=== PATIENT | male | born 1960 | race Caucasian/White ===

== ENCOUNTER 2017-01-13 06:31 | Inpatient (IN) | payer OTHER ==
--- NOTE | 2016-12-26 12:31 | PAT Medication Instructions ---
Service Date Dec 26, 2016. Current Home Medication List Ascorbic Acid (Vitamin C), 500 MG PO NOON Cinnamon (Cinnamon), 1,000 MG PO NOON Coenzyme Q10 (Ubidecarenone) (Coq10), 100 MG PO NOON Ibuprofen Tab (Advil), 400 MG PO QID PRN for RN Meloxicam (Mobic), 15 MG PO NOON Multivitamin (Multivitamin), 1 TAB PO NOON Omeprazole (Prilosec), 20 MG PO Q2D Pravastatin (Pravachol ), 80 MG PO NOON Ropinirole (Requip), 0.25 MG PO HS PRN for RESTLESS LEG Vitamin E (Vitamin E), 400 UNITS PO NOON [Calcium Zinc Mag], 1 TAB PO NOON [L Lysine], 1,000 MG PO NOON Medication Instructions For Your Scheduled Surgery - Hold the following medications 10 days prior to surgery: Ibuprofen Tab (Advil), 400 MG PO QID PRN for RN Meloxicam (Mobic), 15 MG PO NOON Calcium Zinc Mag 1 TAB PO NOON Vitamin E (Vitamin E), 400 UNITS PO NOON Coenzyme Q10 (Ubidecarenone) (Coq10), 100 MG PO NOON Cinnamon (Cinnamon), 1,000 MG PO NOON - Hold the following medications evening prior to surgery: Ropinirole (Requip), 0.25 MG PO HS PRN for RESTLESS LEG - Hold the following medications the morning of surgery: L Lysine 1,000 MG PO NOON Multivitamin (Multivitamin), 1 TAB PO NOON Ascorbic Acid (Vitamin C), 500 MG PO NOON - Take the following medications the morning of surgery with a sip of water: Omeprazole (Prilosec), 20 MG PO Q2D - Take the following medications as scheduled the afternoon/night before surgery : Pravastatin (Pravachol ), 80 MG PO NOON If you have any questions please call us at [phone] or [phone] ( Brenna) or [phone]
[2016-12-26 13:20] LABS: BASO % 0.5 %; BASO ABS # 0.03 K/uL (0-0.2); COMPLETE YES; EOS % 1.9 %; HEMATOCRIT 44.1 % (42-52); IG% 0.2 %; LYMPH % 34.3 %; LYMPH ABS # 2.02 K/uL (1.2-3.4); MEAN CELL VOLUME 91.1 fL (80-100); MEAN CORPUSCULAR HEMOGLOBIN 31.4 pg (25-34); MEAN CORPUSCULAR HGB CONC 34.5 g/dl (32-36); MEAN PLATELET VOLUME 8.9 fL (7.4-10.4); MONO % 12.1 %; PLATELET COUNT 369 K/uL (130-400); RED BLOOD COUNT 4.84 M/uL (4.7-6.1); WHITE BLOOD COUNT 5.89 K/uL (4.8-10.8)
[2016-12-26 13:22] LABS: URINE APPEARANCE CLEAR (CLEAR); URINE BILIRUBIN NEG (NEG); URINE COLOR YELLOW; URINE NITRITE NEG (NEG); URINE SPECIFIC GRAVITY 1.023 (1.000-1.030); UROBILINOGEN NEG (NEG); ZZUR CULT IF INDIC CLEAN CATCH NO
[2016-12-26 13:31] LABS: PARTIAL THROMBOPLASTIN RATIO 1.1; PROTHROMBIN TIME (PATIENT) 10.4 SECONDS (9.0-12.0)
[2016-12-26 13:38] LABS: MANUAL MICROSCOPIC REQUIRED? NO; REVIEW REQ? NO
[2016-12-26 13:40] LABS: BUN/CREATININE RATIO 15.3 (10-20); CALCIUM 9.6 mg/dl (8.5-10.1); CREATININE 0.92 mg/dl (0.60-1.40); POTASSIUM 4.6 mmol/L (3.5-5.1)
--- NOTE | 2017-01-09 08:44 | HISTORY & PHYSICAL EXAMINATION ---
DATE OF ADMISSION: 01/13/2017 CHIEF COMPLAINT: Left knee pain. HISTORY OF PRESENT ILLNESS: Mr. Mcnamara is a 56-year-old male with a 20-year history of pain in his left knee. The patient rates his pain at an 8/10. He has pain with his daily activities. He has limited standing and walking tolerance. Pain is worse with weightbearing. The patient has had knee arthroscopy x2 followed by 6 weeks of physical therapy each time. He takes Mobic since 2010. He has been taking other anti-inflammatories for 20 years. He wears a brace with most of his activities. He does participate in a home exercise program daily for the last 10 years. This is becoming increasingly more difficult. He has also had injections, both Synvisc and corticosteroids without relief. At this time, he has failed conservative treatment and is scheduled for left knee replacement. PAST MEDICAL HISTORY: Hypercholesterolemia, GERD, and Lyme disease. He denies heart disease, diabetes or DVT. PAST SURGICAL HISTORY: Left knee arthroscopy x2, ORIF of left ankle, and hand surgery, right wrist. SOCIAL HISTORY: The patient drinks approximately 13 beers per week. He denies tobacco use. He lives in a 2-zolt[address] house. He currently works for the [employer]. FAMILY HISTORY: Negative for DVT. MEDICATIONS: Pravastatin 80 mg daily, Meloxicam 15 mg twice daily, omeprazole 20 mg daily, ropinirole 0.25 mg at bedtime, Advil 2-4 tablets daily, multivitamin, vitamin E, vitamin C, CoQ10, L-lysine, calcium, magnesium and cinnamon. ALLERGIES: PENICILLIN, UNSURE OF REACTION. THIS HAPPENED A CHILD. REVIEW OF SYSTEMS: See HPI. Ten other systems reviewed, all negative. PHYSICAL EXAMINATION: VITAL SIGNS: Height 6 feet 0 inches. Weight 220 pounds. BMI 30. GENERAL: This is a well-developed and well-nourished male who is alert and oriented x3. Mood and affect are appropriate. HEENT: Normocephalic and atraumatic. Mucous membranes are moist and intact. NECK: Supple without lymphadenopathy. HEART: Regular rate and rhythm without murmurs, rubs or gallops. LUNGS: Clear to auscultation without wheezes or rhonchi. ABDOMEN: Soft and nontender. Bowel sounds are equal and active. EXTREMITIES: No ecchymosis, redness or warmth. He has neutral alignment. Range of motion is from 0-115 degrees with trace medial laxity. He is neurovascularly intact with +5/5 strength. X-RAY EXAMINATION: AP and lateral views show joint space narrowing and osteophyte formation. IMPRESSION: Degenerative joint disease, left knee. PLAN: The patient will be admitted for a left total knee arthroplasty. We will plan on aspirin for DVT prophylaxis. PCP is Dr. Sarah Piedra at [facility]. HENNY
[~2017-01-13] VITALS: Ht 182.9 cm; Wt 100.8 kg
[2017-01-13] VITALS (8 sets, daily range): BP systolic 99–171; BP diastolic 59–103; PULSE 60–80; TEMP 36.5–37; O2SAT 95–98; Ht 182.9 cm; Wt 100.8 kg
[2017-01-13] MEDS: TRANEXAMIC ACID INJ 1,000 MG in SODIUM CHLORIDE 0.9% 100ML 100 ML IV SCH ×2 (06:30→07:41)
[~2017-01-13 06:31] MED LIST: ACETAMINOPHEN 500 MG TAB PO SCH; ASCO1CAP3 PO; BUPIVACAINE 0.25% 30 ML VIAL ONE; BUPIVACAINE 0.5 % 5 MG/1 ML PF 10ML VIAL ONE; CALCIUM ZINC MAG PO; CINN1CAP2 PO; CLINDAMYCIN 600 MG/54 ML D5W 54 ML IV SCH; COEN100C7 PO; CeleBREX 200 MG CAP PO SCH; DEXAMETHASONE 4 MG TAB PO SCH; FAMOTIDINE 20 MG TAB PO SCH; GABAPENTIN 300 MG CAP PO SCH; IBUP-103 PO; L LYSINE PO; LACTATED RINGER'S 1000ML 1,000 ML IV SCH; LACTATED RINGER'S 1000ML 500 ML IV ONE; LACTATED RINGER'S 1000ML IV SCH; MELO7.5T5 PO; METOCLOPRAMIDE HCL 10 MG TAB PO SCH; MULT-506 PO; OXYCODONE HCL 10 MG TABCR (OXYCONTIN) PO SCH; POLYMYXIN B SULFATE 100,000 UNITS in NSS 100ML IR SCH; PRAV20TA PO; PRLSR20 PO; ROPI0.25 PO; ROPIVACAINE 5MG/ML 30 ML 150 MG, BUPIVACAINE/EPINEPHR 0.5% MPF 30 ML, KETOROLAC TROMETH... INFIL SCH; VANCOMYCIN INJ 400 MG in NSS 100ML IR SCH; VITA1TAB4 PO
[2017-01-13] MEDS ORDERED: MIDAZOLAM HCL 1 MG/ML 2ML VIAL ONE ×3 (06:44→08:41)
[2017-01-13] MEDS ORDERED: PROPOFOL IV EMULSION 10 MG/ML 20 ML VIAL IV ONE ×2 (06:44→12:01)
[2017-01-13] MEDS ORDERED: LIDOCAINE HCL 2% 2 ML VIAL (20MG/ML) ONE (06:44)
[2017-01-13] MEDS ORDERED: FENTANYL CITRATE INJ 50 MCG/1 ML 2 ML VIAL ONE (06:45)
--- NOTE | 2017-01-13 06:47 | History & Physical Bridge Note ---
H&P Re-Evaluation Bridge Note: I have examined the patient, reviewed the History & Physical and in the interval since the performance of the History & Physical I have noted the following changes of clinical significance: No changes noted
[2017-01-13] MEDS ORDERED: ORTHO JOINT ANESTHETIC ONE (07:04)
[2017-01-13] MEDS ORDERED: BUPIVACAINE/EPINEPHRINE 0.25% 1:200,000 30 ML VIAL ONE (07:05)
[2017-01-13] MEDS ORDERED: POVIDONE-IODINE OP SOLN 30 ML BTL ONE (07:05)
[2017-01-13] MEDS ORDERED: BACITRACIN 50000 UNIT VIAL ONE (07:05)
[2017-01-13] MEDS ORDERED: METOPROLOL TARTRATE 1 MG/ML VIAL ONE (08:40)
[2017-01-13] MEDS ORDERED: PHENYLEPHRINE 100MCG/ML 5ML SYR IV PRN (08:45)
[2017-01-13] MEDS ORDERED: HYDROmorphone INJ 2 MG/ML SYR/VIAL IV PRN (08:45)
[2017-01-13] MEDS ORDERED: ATROPINE SULFATE 0.1 MG/ML 5ML SYR IV PRN (08:45)
[2017-01-13] MEDS ORDERED: ONDANSETRON INJ 2 MG/ML 2 ML VIAL IV PRN ×2 (08:45→09:45)
[2017-01-13] MEDS ORDERED: EpHEDrine SULFATE INJ 50 MG/ML AMP IV PRN (08:45)
[2017-01-13] MEDS ORDERED: KETOROLAC TROMETHAMINE 30 MG/ML VIAL IV. PRN ×2 (08:45→09:45)
--- NOTE | 2017-01-13 09:43 | [facility] Post Operative Brief Note ---
Immediate Operative Summary Operative Date Jan 13, 2017. Pre-Operative Diagnosis Left knee degenerative joint disease Post-Operative Diagnosis Left knee degenerative joint disease Procedure(s) Performed Left total knee arthroplasty Surgeon Dr. George Pringle Senior Web Engineer Surgeon(s) Angel Rod PA-C Estimated Blood Loss 50CC Findings DJD ACL DEF Specimens A. Left knee bone and tissue Complication(s) None Disposition Recovery Room / PACU
[2017-01-13] MEDS ORDERED: TRAMADOL HCL 50 MG TAB PO PRN (09:45)
[2017-01-13] MEDS ORDERED: DiphenhydrAMINE HCL 50 MG/ML VIAL IV PRN (09:45)
[2017-01-13] MEDS ORDERED: SOD PHOSPHATE/SOD BIPHOSPHATE ENEMA 132 ML BTL PR PRN (09:45)
[2017-01-13] MEDS ORDERED: ROPINIROLE HCL 0.25 MG TAB PO PRN (09:45)
[2017-01-13] MEDS ORDERED: MAGNESIUM HYDROXIDE SUSP 30 ML UDC PO PRN (09:45)
[2017-01-13] MEDS ORDERED: ALUMINUM/MAGNESIUM/SIMETH (MAALOX MAX) 30 ML UDC PO PRN (09:45)
[2017-01-13] MEDS ORDERED: METOCLOPRAMIDE HCL INJ 5 MG/ML 2 ML VIAL IV PRN (09:45)
[2017-01-13] MEDS ORDERED: BISACODYL 10 MG SUPP PR PRN (09:45)
[2017-01-13] MEDS ORDERED: ZOLPIDEM TARTRATE 5 MG TAB PO PRN (09:45)
[2017-01-13] MEDS ORDERED: MoRPHine SULFATE 2 MG/ML CARP IV PRN (09:45)
--- NOTE | 2017-01-13 10:45 | DIAGNOSTIC IMAGING REPORT ---
TWO VIEWS LEFT KNEE CLINICAL HISTORY: Postoperative examination. FINDINGS: AP and crosstable lateral portable views of the left knee are obtained. A left knee arthroplasty is in near anatomic alignment. There has been undersurface remodeling of the patella. No acute fracture is seen. There are expected postoperative changes around the knee including a surgical drain, soft tissue edema, and subcutaneous gas. A benign-appearing sclerotic lesion within the distal femoral diaphysis likely represents an enchondroma. IMPRESSION: 1. Expected postoperative changes status post left knee arthroplasty. No acute fracture is seen. 2. A benign-appearing sclerotic lesion within the distal femoral metaphysis likely represents an enchondroma. Electronically signed by: Vladimir Chin M.D. 01/13/2017 10:44 AM Dictated Date/Time: 01/13/2017 10:43 AM
--- NOTE | 2017-01-13 12:13 | Anesthesiology Progress Note ---
Anesthesia Post Op Note Date & Time Jan 13, 2017 at 12:13 Vital Signs Pain Intensity: 0 Vital Signs Past 12 Hours Date Time Temp Pulse Resp B/P Pulse Ox O2 Delivery O2 Flow Rate FiO2 01/13/17 11:31 37.1 58 16 110/63 93 Nasal Cannula 2 01/13/17 11:26 66 14 97 01/13/17 11:26 65 14 01/13/17 11:25 106/75 01/13/17 11:21 62 25 01/13/17 11:21 62 25 95 01/13/17 11:20 106/63 01/13/17 11:16 57 12 95 01/13/17 11:16 58 12 01/13/17 11:15 92/70 01/13/17 11:11 68 16 94 01/13/17 11:11 68 16 01/13/17 11:10 117/67 01/13/17 11:06 63 20 01/13/17 11:06 64 20 96 01/13/17 11:05 94/65 01/13/17 11:01 71 13 95 01/13/17 11:01 68 13 01/13/17 11:00 98/63 01/13/17 10:56 57 13 95 01/13/17 10:56 58 13 01/13/17 10:55 98/60 01/13/17 10:51 56 11 01/13/17 10:51 55 11 93 01/13/17 10:50 103/61 01/13/17 10:49 61 19 01/13/17 10:49 59 19 94 01/13/17 10:45 105/63 01/13/17 10:44 60 13 01/13/17 10:44 60 13 93 01/13/17 10:40 99/63 01/13/17 10:39 63 21 01/13/17 10:39 64 21 95 01/13/17 10:35 103/61 01/13/17 10:34 61 16 01/13/17 10:34 62 16 95 01/13/17 10:30 105/66 01/13/17 10:29 66 19 97 01/13/17 10:29 66 19 01/13/17 10:25 112/60 01/13/17 10:24 69 19 01/13/17 10:24 69 19 95 01/13/17 10:20 109/60 01/13/17 10:19 68 13 104/59 96 01/13/17 10:19 36.5 68 16 104/59 96 Room Air 01/13/17 10:19 68 13 01/13/17 06:55 36.6 80 20 171/103 98 Room Air Notes Mental Status: alert / awake / arousable, participated in evaluation Pt Amnestic to Procedure: Yes Nausea / Vomiting: adequately controlled Pain: adequately controlled Airway Patency, RR, SpO2: stable & adequate BP & HR: stable & adequate Hydration State: stable & adequate Anesthetic Complications: no major complications apparent
[2017-01-13] MEDS: PRAVASTATIN SOD 40 MG TAB PO SCH (13:35)
[2017-01-13] MEDS: D5W AND 1/2NSS + 20MEQ KCL 1,000 ML IV SCH ×2 (13:35→23:36)
[2017-01-13] MEDS: ACETAMINOPHEN 500 MG TAB PO SCH ×2 (13:36→21:25)
--- NOTE | 2017-01-13 14:54 | OPERATIVE REPORT ---
DATE OF OPERATION: 01/13/2017 PREOPERATIVE DIAGNOSIS: Degenerative arthritis, left knee. POSTOPERATIVE DIAGNOSIS: Same. PROCEDURE: Left total knee with patient matched implant. SURGEON: Dr. George Pringle. BOX WORKER: YANELY Cortez. ANESTHESIA: Spinal. BLOOD LOSS: 50 mL. REPLACEMENT FLUIDS: 1900 mL crystalloid. DRAINS: Hemovac x2. CULTURES: None. COMPLICATIONS: None. COMPONENTS USED: Tomas \T\ Nephew Journey Knee System: Femur size 8, tibia size 7 x 9, and patella size 38. NOTE: YANELY Cortez was present and assisted throughout due to the complicated nature of this case. He helped with preparation and set up, first assisted throughout and personally closed the capsule, subcutaneous and skin layers and applied the postoperative dressing. DESCRIPTION OF PROCEDURE: Following satisfactory spinal, the patient was supine. A tourniquet was placed, but not inflated. The lower extremity was prepared with ChloraPrep and draped sterilely. Following a surgical time-out, a midline incision was made with a trivector approach. The knee showed severe grade 4 changes throughout with absence of the anterior cruciate ligament. The posterior cruciate ligament was excised. The patient matched femoral block was applied. Femoral distal rotation and resection were set and completed. The 4-in-1 block was used to finish preparation of the femur. The patient matched tibial block was applied. Tibial resection was completed. Patella was freehand cut. Soft tissue balancing was completed and a trial reduction showed good tensioning stability on the collateral ligaments, stable range of motion, and the patella tracked well. The trial components were removed. The capsule was prepared with the orthopedic cocktail and after irrigation, the components were cemented using Simplex G cement. A Betadine soak was performed. When the cement had hardened, the Betadine was irrigated. Two drains were placed. The arthrotomy was closed with a running suture of 0 V-Loc and reinforced with #1 Vicryl, the subcutaneous tissues with 2-0 V-Loc and the skin with a running subcuticular stitch of 3-0 V-Loc. Dermabond and a dry dressing were applied. The patient was returned to his bed in good condition. I attest to the content of the Intraoperative Record and any orders documented therein. Any exceptio ns are noted below.
[2017-01-13] MEDS: CLINDAMYCIN IV 600 MG in DEXTROSE 5% ADD-VANTAGE 50ML 50 ML IV SCH (15:47)
[2017-01-13] MEDS ORDERED: TRANEXAMIC ACID INJ 1,000 MG in SODIUM CHLORIDE 0.9% 100ML 100 ML IV SCH (16:30)
[2017-01-13] MEDS: OXYCODONE HCL 10 MG TABCR (OXYCONTIN) PO SCH (21:24)
[2017-01-13] MEDS: ASPIRIN 81 MG ECTAB PO SCH (21:24)
[2017-01-13] MEDS: SENNA 8.6 MG TAB PO SCH (21:25)
[2017-01-14] MEDS: CLINDAMYCIN IV 600 MG in DEXTROSE 5% ADD-VANTAGE 50ML 50 ML IV SCH (01:48)
[2017-01-14] MEDS: ACETAMINOPHEN 500 MG TAB PO SCH ×3 (05:41→22:09)
[2017-01-14 05:47] LABS: HEMATOCRIT 33.5 % (42-52); MEAN CELL VOLUME 94.1 fL (80-100); MEAN CORPUSCULAR HEMOGLOBIN 31.7 pg (25-34); MEAN CORPUSCULAR HGB CONC 33.7 g/dl (32-36); MEAN PLATELET VOLUME 9.2 fL (7.4-10.4); PLATELET COUNT 300 K/uL (130-400); RED BLOOD COUNT 3.56 M/uL (4.7-6.1); WHITE BLOOD COUNT 10.63 K/uL (4.8-10.8)
[2017-01-14 06:12] LABS: BUN/CREATININE RATIO 14.4 (10-20); CALCIUM 8.3 mg/dl (8.5-10.1); CREATININE 0.84 mg/dl (0.60-1.40); POTASSIUM 4.4 mmol/L (3.5-5.1)
[2017-01-14 07:51] VITALS: BP 104/64; PULSE 67; TEMP 36.9; O2SAT 95
[2017-01-14] MEDS: D5W AND 1/2NSS + 20MEQ KCL 1,000 ML IV SCH (07:53)
[2017-01-14] MEDS: ASPIRIN 81 MG ECTAB PO SCH ×2 (08:58→22:08)
[2017-01-14] MEDS: MULTIVITAMIN TAB PO SCH (08:58)
[2017-01-14] MEDS: PANTOprazole SOD 40 MG TAB PO SCH (08:59)
[2017-01-14] MEDS: OXYCODONE HCL 10 MG TABCR (OXYCONTIN) PO SCH ×2 (09:03→22:08)
--- NOTE | 2017-01-14 10:03 | Orthopedic Progress Note ---
Orthopedic Progress Note Date of Service Jan 14, 2017. Subjective Post OP Day: 1 Reports: feeling well, Denies: SOB, calf pain, chest pain, light headedness, nausea / vomiting Objective calves soft nontender, N/V intact, dressing C/D/I, A&O x3, toes mobile, hemovac drainage (525/150CC PER SHIFT) Date Time Temp Pulse Resp B/P Pulse Ox O2 Delivery O2 Flow Rate FiO2 01/14/17 07:51 36.9 67 16 104/64 95 Room Air 01/13/17 23:40 Room Air 01/13/17 22:45 36.6 60 16 99/59 95 Room Air 01/13/17 19:40 Room Air 01/13/17 19:30 36.5 66 18 113/66 96 Room Air 01/13/17 15:00 37.0 72 16 99/64 96 Nasal Cannula 2.0 01/13/17 14:00 67 16 104/65 95 Nasal Cannula 2.0 01/13/17 13:07 75 16 107/63 97 2.0 01/13/17 12:35 69 16 107/69 98 2.0 01/13/17 12:00 97 Nasal Cannula 2.0 01/13/17 12:00 97 Nasal Cannula 2.0 01/13/17 12:00 36.6 64 18 100/59 97 Nasal Cannula 2.0 01/13/17 11:31 37.1 58 16 110/63 93 Nasal Cannula 2 01/13/17 11:26 66 14 97 01/13/17 11:26 65 14 01/13/17 11:25 106/75 01/13/17 11:21 62 25 01/13/17 11:21 62 25 95 01/13/17 11:20 106/63 01/13/17 11:16 57 12 95 01/13/17 11:16 58 12 01/13/17 11:15 92/70 01/13/17 11:11 68 16 94 01/13/17 11:11 68 16 01/13/17 11:10 117/67 01/13/17 11:06 63 20 01/13/17 11:06 64 20 96 01/13/17 11:05 94/65 01/13/17 11:01 71 13 95 01/13/17 11:01 68 13 01/13/17 11:00 98/63 01/13/17 10:56 57 13 95 01/13/17 10:56 58 13 01/13/17 10:55 98/60 01/13/17 10:51 56 11 01/13/17 10:51 55 11 93 01/13/17 10:50 103/61 01/13/17 10:49 61 19 01/13/17 10:49 59 19 94 01/13/17 10:45 105/63 01/13/17 10:44 60 13 01/13/17 10:44 60 13 93 01/13/17 10:40 99/63 01/13/17 10:39 63 21 01/13/17 10:39 64 21 95 01/13/17 10:35 103/61 01/13/17 10:34 61 16 01/13/17 10:34 62 16 95 01/13/17 10:30 105/66 01/13/17 10:29 66 19 97 01/13/17 10:29 66 19 01/13/17 10:25 112/60 01/13/17 10:24 69 19 01/13/17 10:24 69 19 95 01/13/17 10:20 109/60 01/13/17 10:19 68 13 104/59 96 01/13/17 10:19 36.5 68 16 104/59 96 Room Air 01/13/17 10:19 68 13 Laboratory Results 24 Hours: Test 01/14/17 05:05 Hematocrit 33.5 % Hemoglobin 11.3 g/dL Assessment & Plan Assessment: POD#1 SP LEFT TKA Inhouse Planning Pain Management: Celebrex, Oxycontin, PO Tylenol, Oxy IR DVT Prophylaxis: TEDs, SCDs, ASA Discharge Planning Discharge Planning: home with home health ([facility] HOME FRIDAY DUE TO HEMOVAC DRAINAGE.)
--- NOTE | 2017-01-14 10:50 | Anesthesiology Progress Note ---
Anesthesia Post Op Note Date & Time Jan 14, 2017 at 10:50 Vital Signs Pain Intensity: 5.0 Vital Signs Past 12 Hours Date Time Temp Pulse Resp B/P Pulse Ox O2 Delivery O2 Flow Rate FiO2 01/14/17 10:30 Room Air 01/14/17 07:51 36.9 67 16 104/64 95 Room Air 01/13/17 23:40 Room Air Notes Mental Status: alert / awake / arousable, participated in evaluation Pt Amnestic to Procedure: Yes Nausea / Vomiting: adequately controlled Pain: adequately controlled Airway Patency, RR, SpO2: stable & adequate BP & HR: stable & adequate Hydration State: stable & adequate Neuraxial Anesthesia: sensory block resolved Anesthetic Complications: no major complications apparent
[2017-01-14 11:11] VITALS: BP 119/72; PULSE 62; TEMP 36.3; O2SAT 97
[2017-01-14 11:29] VITALS: BP 156/80; PULSE 72; O2SAT 98
[2017-01-14] MEDS ORDERED: ASCORBIC ACID 500 MG TAB PO SCH (12:00)
[2017-01-14] MEDS: OXYCODONE HCL IR 5 MG TAB (IMMEDIATE RELEASE) PO PRN (12:31)
[2017-01-14] MEDS: PRAVASTATIN SOD 40 MG TAB PO SCH (12:31)
[2017-01-14 15:50] VITALS: BP 118/72; PULSE 60; TEMP 36.6; O2SAT 98
[2017-01-14] MEDS: SENNA 8.6 MG TAB PO SCH ×2 (21:00→22:08)
[2017-01-15 00:08] VITALS: BP 122/75; PULSE 66; TEMP 36.9; O2SAT 95
[2017-01-15] MEDS: ACETAMINOPHEN 500 MG TAB PO SCH (05:42)
[2017-01-15 06:18] VITALS: PULSE 72; TEMP 36.7; O2SAT 98
[2017-01-15 07:12] VITALS: BP 126/81
[2017-01-15] MEDS: ASPIRIN 81 MG ECTAB PO SCH (07:53)
[2017-01-15] MEDS: OXYCODONE HCL 10 MG TABCR (OXYCONTIN) PO SCH (07:53)
[2017-01-15] MEDS: MULTIVITAMIN TAB PO SCH (07:53)
[2017-01-15] MEDS: PANTOprazole SOD 40 MG TAB PO SCH (07:53)
[2017-01-15 08:08] VITALS: BP 118/81; PULSE 73; O2SAT 98
--- NOTE | 2017-01-15 08:46 | Orthopedic Progress Note ---
Orthopedic Progress Note Date of Service Jan 15, 2017. Subjective Post OP Day: 2 Reports: feeling well, Denies: SOB, calf pain, chest pain, light headedness, nausea / vomiting Objective calves soft nontender, N/V intact, dressing C/D/I, A&O x3, toes mobile Date Time Temp Pulse Resp B/P Pulse Ox O2 Delivery O2 Flow Rate FiO2 01/15/17 08:08 73 16 118/81 98 Room Air 01/15/17 07:12 126/81 01/15/17 06:18 36.7 72 16 98 Room Air 01/15/17 04:00 Room Air 01/15/17 00:08 36.9 66 16 122/75 95 Room Air 01/14/17 17:00 Room Air 01/14/17 15:50 36.6 60 16 118/72 98 Room Air 01/14/17 11:29 72 98 01/14/17 11:11 36.3 62 16 119/72 97 Room Air 01/14/17 10:30 Room Air Assessment & Plan Assessment: POD#2 SP LEFT TKA Inhouse Planning Pain Management: Celebrex, Oxycontin, PO Tylenol, Oxy IR DVT Prophylaxis: TEDs, SCDs, ASA Discharge Planning Discharge Planning: home with home health ([facility] TODAY)
--- NOTE | 2017-01-15 08:47 | Discharge Instructions ---
Discharge Instructions Date of Service Jan 15, 2017. Admission Reason for Admission: Left Knee Degenerative Arthritis Discharge Discharge Diagnosis / Problem: SP LEFT TOTAL KNEE Discharge Goals Goal(s): Decrease discomfort, Improve function, Increase independence Activity Recommendations Activity Limitations: per Instructions/Follow-up section . Instructions / Follow-Up Instructions / Follow-Up ACTIVITY RECOMMENDATIONS: SELF CARE INSTRUCTIONS AFTER TOTAL KNEE REPLACEMENT A. You may need to continue a physical therapy program after discharge from the hospital. There are several options available to you. Your doctor will assist you in selecting the best one for you. 1. An out-patient facility 2 to 3 times a week for therapy or home therapy. 2. Continue working on all exercises taught to you in the hospital. Your goals should be to increase bending of your knee to 90 degrees and beyond and to fully straighten your knee. B. You may progress at your own pace from walking with a walker or crutches to a cane; then to no assistive devices. C. Make walking a part of your daily routine. Be up as much as comfortable with rest periods throughout the day. Rest with leg elevation is very important. Use the ice wrap frequently for the first 3-4 weeks. D. There are no restrictions on activities. You may ride in a car, shop, participate in captain room service and all social activities. E. Wear the long elastic stockings (RENU hose) 20 hours a day for 2 weeks after surgery. They can be removed several times a day for laundering and for a bath. F. You may shower, no tub baths until cleared by your doctor. SPECIAL CARE INSTRUCTIONS: VERY IMPORTANT TO READ AND REVIEW A. There are a few signs you need to watch for after you are home. Call [facility] if you notice any of the followin. Increased severe knee pain. Some pain is expected especially when you exercise. 2. Increased swelling in your leg or knee; pain or swelling of the calf muscle in either lower leg. 3. Any fluid drainage from the incision. 4. Shortness of breath or chest pain. B. Please call [facility] at if you have any concerns or questions about your operation or recovery. The doctor or his nurse will return your call promptly. C. You must take antibiotics before dental work, bladder, bowel or other surgery. Your doctor will provide you with a permanent care to carry describing this precaution. IMPORTANT: * REMEMBER TO TAKE ASPIRIN, 81 MG, TWICE DAILY FOR 4 WEEKS UNLESS OTHERWISE DIRECTED. THIS IS YOUR BLOOD THINNER. * HIGH RISK PATIENTS MAY BE PRESCRIBED A STRONGER BLOOD THINNER. THIS WILL BE PROVIDED AT DISCHARGE. * CALL IF INCREASED PAIN, REDNESS, DRAINAGE OR FEVER GREATER THAT 101. * WEAR RENU HOSE 20 HOURS PER DAY FOR 2 WEEKS. DERMABOND Prineo- This is a mesh tape dressing that is covered with glue. It should remain in place until the incision is properly healed, usually 10-14 days. This dressing is designed to naturally slough off. You may trim the excess mesh tape as it peels off. Incision may be briefly wet in a shower. Dry immediately by blotting with a clean, dry towel. Do not bath or swim until instructed by your doctor. Do not scratch, rub, or pick at the dressing. Do not apply any topical ointments or lotions until dressing is completely removed and/or instructed by your doctor. There may be a small piece of suture material at one end of your incision. Do not pull or trim this. If it is bothersome or catching on clothing, you may cover it with a band-aid. FOLLOW UP VISIT: If appointment is not already scheduled: Please call [facility] to make a follow-up appointment for 2 weeks after your surgery at . Current Hospital Diet Patient's current hospital diet: Regular Diet Discharge Diet Recommended Diet: Regular Diet Procedures Procedures Performed: Left total knee arthroplasty Pending Studies Studies pending at discharge: no Medical Emergencies . Who to Call and When: Medical Emergencies: If at any time you feel your situation is an emergency, please call 911 immediately. . Non-Emergent Contact Non-Emergency issues call your: Surgeon . "Provider Documentation" section prepared by Pauline Varela. VTE Core Measure Inpt VTE Proph given/why not?: Other Anticoagulation, T.E.DKamron Godinez, SCD's [place] Drug Monitoring Program Search Results: patient reviewed within database, no issues identified
[2017-01-15] MEDS ORDERED: RXC5 PO (08:50)
[2017-01-15] MEDS ORDERED: ONDA8TAB6 PO (08:50)
[2017-01-15] MEDS ORDERED: ASPEC81 PO (08:50)
[2017-01-15] MEDS ORDERED: MORP-157 PO (08:50)
[2017-01-15] MEDS ORDERED: CLB200 PO (08:50)
[2017-01-15] MEDS ORDERED: SNK PO (08:50)
[2017-01-15] MEDS ORDERED: ACET-1138 PO (08:50)
[2017-01-15 08:58] VITALS: BP 118/81; PULSE 73; TEMP 36.7; O2SAT 98
[2017-01-15] MEDS ORDERED: CeleBREX 200 MG CAP PO SCH (09:00)
[2017-01-15] MEDS: OXYCODONE HCL IR 5 MG TAB (IMMEDIATE RELEASE) PO PRN (10:35)
--- NOTE | 2017-01-16 15:04 | DISCHARGE SUMMARY ---
DISCHARGE DIAGNOSIS: Degenerative joint disease left knee. SECONDARY DIAGNOSES: Hypercholesterolemia, GERD, history of Lyme disease. CONSULTS: None. COMPLICATIONS: None. PROCEDURES: Left total knee arthroplasty performed by Dr. Florentin Pringle on 01/13/2017. BRIEF HISTORY: As dictated in the history and physical. HOSPITAL SUMMARY: The patient was admitted on the above date and had the above-noted surgery performed which he tolerated well. On the patient's first postoperative day went well and had no complaints. Calves were soft and nontender, neurovascularly intact. Dressings clean, dry and intact. Toes were mobile and vital signs were stable. He was afebrile. He was started on physical therapy protocol and continued on DVT prophylaxis and pain management. Hemoglobin was 11.3 and plans were for home with home health services the following day. The rest of her stay was essentially uneventful and by 01/15/2017 he was feeling well and had no complaints. Calves were soft, nontender, neurovascularly intact. Dressings clean, dry and intact. Toes were mobile. Vital signs stable. He was afebrile and he was remaining stable and it was felt he be discharged to home with home health services on 01/15/2017. For further review, please see chart. LAB AND X-RAY DATA: As per chart. DISCHARGE INSTRUCTIONS: The patient was discharged to home in satisfactory on 01/15/2017. DIET: Regular. ACTIVITY: Follow TK instruction sheets and special care instructions as noted. Follow up with Dr. Pringle in 2 weeks. The patient to call for appointment if one has not been made for you. DISCHARGE MEDICATIONS: Acetaminophen 1000 mg p.o. q. 8 hours for 30 days, aspirin 81 mg p.o. b.i.d. for 30 days, Celebrex 200 mg p.o. b.i.d., MS Contin 15 mg p.o. q. 12 hours, Zofran 8 mg p.o. q. 8 hours p.r.n. nausea, oxycodone 5-10 mg p.o. q. 4 hours p.r.n., senna 17.2 mg at bedtime. Resume taking vitamin C 500 mg p.o. at noon, cinnamon 1000 mg p.o. at noon, CoQ10 100 mg p.o. at noon, multivitamin 1 tablet at noon, omeprazole 20 mg p.o. q. 2 days, Pravastatin 80 mg p.o. at noon, ropinirole 0.25 mg p.o. at bedtime p.r.n. restless legs, vitamin E 400 units p.o. at noon, calcium with zinc 1 tab p.o. at noon, lysine 1000 mg p.o. at noon. Stop taking ibuprofen and meloxicam.
== END 2017-01-15 11:47 | disposition home health service (06) | DRG 470 ==
LOC: ENRESERVTM → ENRESERVDT → C.ACU 06:31 → C.3E 09:46
PROVIDERS: ADMIT Orthopaedic Surgery; ATTEND Orthopaedic Surgery
PROC: 0SRD0J9 Replacement of Left Knee Joint with Synthetic Substitute, Cemented, Open Approach (ICD-10-PCS; principal; 2017-01-13 08:00)
DX: M17.12 Unilateral primary osteoarthritis, left knee (principal); K21.9 Gastro-esophageal reflux disease without esophagitis; E66.9 Obesity, unspecified; E78.00 Pure hypercholesterolemia, unspecified; M06.9 Rheumatoid arthritis, unspecified; Z79.1 Long term (current) use of non-steroidal anti-inflammatories (NSAID); Z79.899 Other long term (current) drug therapy; Z87.891 Personal history of nicotine dependence; Z86.19 Personal history of other infectious and parasitic diseases; Z68.30 Body mass index [BMI] 30.0-30.9, adult